=== PATIENT | male | born 1955 ===

== ENCOUNTER 2018-07-18 16:49 | Emergency (ER) | payer BC ==
--- OUTSIDE RECORDS SUMMARY | 2018-07-18 17:03 | XMS REPORT ---
:1955 External Reference #:[id number] Author Organization [facility] Address [address], [address] [place] [address] Phone [phone] Care Team Providers Name Role Phone Rhett Montgomery, Care Team Information Liquor Maker Unavailable Rhett Montgomery DO Primary Care Physician Unavailable Payers Type Date Identification Numbers Payment Provider Subscriber Commercial Policy Number: [id number] Mateo Fuentes PayID: [id number] [address] [address] [place] [address] Problems Date Description Provider Status Onset: 06/19/2018 Benign prostatic hypertrophy with Giovani Cruz M.D. Active outflow obstruction Onset: 05/22/2018 Psychogenic impotence Giovani Cruz M.D. Active Onset: 01/31/2018 Testicular hypofunction Giovani Cruz M.D. Active Onset: 01/31/2018 Microscopic hematuria Giovani Cruz M.D. Active Family History Date Family Member(s) Problem(s) Comments Father due to multiple myeloma () Mother due to Essential Hypertension () Mother due to Stroke () Mother due to Breast Cancer () Social History Type Date Description Comments Lives With Occupation works at [employer] ETOH Use Uses Alcohol Daily ETOH Use 2-3 on average day more on game days Smoking occasional cigar Recreational Drug Use Denies Drug Use Allergies, Adverse Reactions, Alerts Date Description Reaction Status Severity Comments 01/31/2018 Penicillin as child unknown active 01/31/2018 Erythromycin gastric active 01/31/2018 Ketex Urticaria active Medications Medication Date Status Form Strength Qnty SIG Indications Ordering Provider Aveed 05/22/ Active Solution 750mg/3ML administered Nancy, 2018 in krystyna Verdugo M.D. office Atorvastatin / Active Tablets 20mg Take One Unknown Calcium 0000 Tablet By Mouth Every Day Omeprazole / Active Capsules 40mg Take One Unknown 0000 DR Capsule By Mouth Every Day Valsartan / Active Tablets 160mg Take One Unknown 0000 Tablet By Mouth Every Day Clomiphene / Active Tablets 50mg Take 1 2 Unknown Citrate 0000 Tablet By Mouth Once Daily Bupropion HCL / Active Tablets ER 300mg Take One Unknown ER (XL) 0000 24HR Tablet By Mouth Every Day Escitalopram / Active Solution 5mg/5ML 1 po qd Unknown Oxalate 0000 Vitamin D3 / Active Capsules 2000Unit 1 po qd Unknown Super Strength 0000 Cipro 02/16/ Hx Tablets 500mg 10tab 1 tab by Nancy, 2017 - s mouth 1 x Giovani, 02/17/ M.DKalyan 2018 Medications Administered in Office Medication Date Status Form Strength Qnty SIG Indications Ordering Provider Injection, Administered Injection Nancy, testosterone 018 Mahmovelvet, undecanoate, 1 M.D. mg- 750 units Injection, Administered Injection Nancy, testosterone 018 Mahmoud, undecanoate, 1 M.D. mg- 750 units Theraputic Or Administered Injection Nancy, Diagnostic 018 Chinedumoud, Injection M.D. Theraputic Or Administered Injection Nancy, Diagnostic 018 Mahmoud, Injection M.D. Vital Signs Date Vital Result Comment 06/19/2018 BP Systolic 131 mmHg BP Diastolic 89 mmHg Body Temperature 98.8 F Heart Rate 73 /min Respiratory Rate 16 /min Height 68 inches 5'8" Weight 164.00 lb BMI (Body Mass Index) 24.9 kg/m2 BSA (Body Surface Area) 1.88 m2 [place] body weight in kilograms 70 O2 % BldC Oximetry 97 % Pain Level 0 05/22/2018 BP Systolic 143 mmHg BP Diastolic 80 mmHg Heart Rate 70 /min Respiratory Rate 16 /min O2 % BldC Oximetry 94 % 05/22/2018 BP Systolic 148 mmHg BP Diastolic 83 mmHg Body Temperature 99.3 F Heart Rate 74 /min Respiratory Rate 16 /min Height 67.5 inches 5'7.50" Weight 163.00 lb BMI (Body Mass Index) 25.1 kg/m2 BSA (Body Surface Area) 1.86 m2 [place] body weight in kilograms 68 O2 % BldC Oximetry 94 % Pain Level 0 02/16/2018 BP Systolic 128 mmHg BP Diastolic 80 mmHg Body Temperature 99.2 F Heart Rate 85 /min Respiratory Rate 18 /min Height 67.5 inches 5'7.50" Weight 165.00 lb BMI (Body Mass Index) 25.5 kg/m2 BSA (Body Surface Area) 1.87 m2 [place] body weight in kilograms 68 O2 % BldC Oximetry 96 % Pain Level 0 01/31/2018 BP Systolic 144 mmHg BP Diastolic 88 mmHg Body Temperature 98.4 F Heart Rate 73 /min Respiratory Rate 14 /min Height 67.5 inches 5'7.50" Weight 166.38 lb BMI (Body Mass Index) 25.7 kg/m2 BSA (Body Surface Area) 1.88 m2 [place] body weight in kilograms 68 O2 % BldC Oximetry 96 % Pain Level 0 Results Test Date Test Result H/L Range Note Laboratory test finding 02/03/2018 Creatinine 0.9 mg/dL 0.6-1.3 1 BUN 12 mg/dL 7-18 1 Ua RFX Micro & Culture II 01/31/2018 Urine Color YELLOW Yellow 1 Urine Clarity CLEAR Clear 1 Urine Glucose - Dipstick NEGATIVE mg/dL Negative 1 Urine Bilirubin - Dipstick NEGATIVE Negative 1 Urine Ketone NEGATIVE mg/dL Negative 1 Urine Specific [place] 1.015 1.010-1.030 1 Urine Blood TRACE Negative 1 Urine PH 6.0 Low 6.5-7.5 1 Urine Protein - Dipstick NEGATIVE mg/dL Negative 1 Urine Urobilinogen - Dipstick 0.2 E.U./dL 0.2-1.0 1 Urine Nitrite - Dipstick NEGATIVE Negative 1 Urine Leuk Esterase NEGATIVE Negative 1 1 R31.21 Procedures Date CPT Code Description Status 05/22/2018 14645 Theraputic Or Diagnostic Injection Completed 05/22/2018 83180 Theraputic Or Diagnostic Injection Completed 02/16/2018 19385 Cystoscopy Completed 01/31/2018 92074 Measurement Post Voiding Residual Urine By Completed Ultrasound,Non-Imaging Encounters Type Date Location Provider CPT E/M Dx Office Visit 06/19/2018 9:15a Urology Giovani Cruz M.D. 26562 E29.1 F52.21 N40.1 Office Visit 05/22/2018 2:30p Urology Giovani Cruz M.D. 04300 E29.1 F52.21 Office Visit 01/31/2018 3:45p Urology Giovani Cruz M.D. 41424 R31.21 E29.1 Plan of Care Future Appointment(s):08/28/2018 9:15 am - Giovani Cruz M.D. at [email or web address] 4:00 pm - Giovani Cruz M.D. at [id number]/19/2018 - Giovani Cruz M.D.E29.1 Testicular hypofunctionComments:Patient has improved after one shot of Aveed, today he receives loading dose#2. He will come back in10 weeks for a testosterone level and an injection.F52.21 Male erectile disorderComments: Continue Viagra. I told the patient that he could take up to 100 mg. His libido has improved.N40.1 Benign prostatic hyperplasia with lower urinary tract sympComments:Patient's symptoms are tolerable at this time and mostly with slowness of stream. He does not want any intervention.
[2018-07-18 17:32] VITALS: BP 151/92
--- NOTE | 2018-07-18 18:02 | UC ---
Skin Complaint HPI - HPI Summary HPI Summary: 63 yo male presents with tick bite to right inner thigh. He tells me that he was outdoors 48 hours ago and just noticed it this afternoon. Tried to remove it with tweezers, but was unable to. He has been bitten by many ticks in the past and is requesting prophylactic doxycycline. - History of Current Complaint Chief Complaint: UCSkin Time Seen by Provider: 07/18/18 18:02 Stated Complaint: TICK BITE Hx Obtained From: Patient Current Severity: None Pain Intensity: 0 - Allergy/Home Medications Allergies/Adverse Reactions: Allergies Allergy/AdvReac Type Severity Reaction Status Date / Time azithromycin Allergy GI Upset Verified 07/18/18 17:25 Penicillins Allergy Unknown Verified 07/18/18 17:25 Reaction Details telithromycin [From Ketek] Allergy Hives Verified 07/18/18 17:25 Home Medications: Home Medications Atorvastatin* [Lipitor 10 MG*] 1 tab DAILY 07/18/18 [History Confirmed 07/18/18] Omeprazole CAP(NF) [PriLOSEC CAP(NF)] 1 tab DAILY 07/18/18 [History Confirmed ] Valsartan TAB* [Diovan TAB*] 1 tab DAILY 07/18/18 [History Confirmed 07/18/18] buPROPion TAB* [Wellbutrin TAB*] 1 tab DAILY 07/18/18 [History Confirmed ] Review of Systems Constitutional: Negative Skin: Other - Tick bite right inner thigh Respiratory: Negative Cardiovascular: Negative Neurovascular: Negative Neurological: Negative Psychological: Negative All Other Systems Reviewed And Are Negative: Yes PMH/Surg Hx/FS Hx/Imm Hx Endocrine History: Dyslipidemia Cardiovascular History: Hypertension GI/ History: Gastroesophageal Reflux - Surgical History Surgical History: None - Family History Known Family History: Positive: None - Social History Occupation: Employed Full-time Lives: With Family Alcohol Use: Daily Alcohol Amount: 2 drinks/night Substance Use Type: None Smoking Status (MU): Never Smoked Tobacco - Immunization History Most Recent Tetanus Shot: Unsure Physical Exam - Summary Physical Exam Summary: GENERAL: NAD. WDWN. No pain distress. SKIN: RIGHT MEDIAL THIGH: 6mm area of moderate erythema with central tick attached. Tick mildly engorged, but not alive. NECK: Supple. Nontender. No lymphadenopathy. CHEST: No accessory muscle use. Breathing comfortably and in no distress. CV: Pulses intact. Cap refill <2seconds NEURO: Alert. PSYCH: Age appropriate behavior. Triage Information Reviewed: Yes Vital Signs: Initial Vital Signs Temp 99 F 07/18/18 17:27 Pulse 73 07/18/18 17:27 Resp 16 07/18/18 17:27 BP 151/92 07/18/18 17:27 Pulse Ox 97 07/18/18 17:27 Vital Signs Reviewed: Yes Course/Dx - Course Course Of Treatment: Tick easily removed with tick tweezers. Rx for 200mg doxycycline. - Diagnoses Provider Diagnoses: Tick bite right medial thigh Discharge - Sign-Out/Discharge Documenting (check all that apply): Patient Departure All imaging exams completed and their final reports reviewed: No Studies - Discharge Plan Condition: Stable Disposition: HOME Prescriptions: DOXYcycline CAP(*) [DOXYcycline 100MG CAP(*)] 200 mg PO ONCE #2 cap Patient Education Materials: Lyme Disease (ED), Tick Bite (ED) Referrals: Rhett Montgomery DO [Primary Care Provider] - Additional Instructions: If you develop a fever, shortness of breath, chest pain, new or worsening symptoms - please call your PCP or go to the ED. Your blood pressure was high at todays visit. Please see your primary provider within 4 weeks for recheck and re-evaluation. TICK BITE: You have been bitten by a tick. Once the tick is removed, these "bites" usually cause no problems. Tick fever, tick paralysis, [place] Spotted fever, and Lyme disease are uncommon -- but you should mention this tick bite to your doctor if you develop unusual symptoms in the next several weeks. If you develop any of the following, please see your physician promptly: (1) Fever, chills, or generalized malaise associated with a headache. (2) A red round area at the site of the bite (or elsewhere) (3) Joint pain, joint swelling or generalized weakness. (4) Redness, swelling, or drainage at the site of the bite. - Billing Disposition and Condition Condition: STABLE Disposition: Home - Attestation Statements Provider Attestation: I was available for consult. This patient was seen by the MANE. The patient was not presented to, seen by, or examined by me. -Lolis
== END 2018-07-18 18:13 | disposition home or self-care (01) ==
LOC: UCCORT 16:49
DX: S70.361A Insect bite (nonvenomous), right thigh, initial encounter (principal); E78.5 Hyperlipidemia, unspecified; I10 Essential (primary) hypertension; K21.9 Gastro-esophageal reflux disease without esophagitis; W57.XXXA Bitten or stung by nonvenomous insect and other nonvenomous arthropods, initial encounter; Y92.9 Unspecified place or not applicable; Z88.0 Allergy status to penicillin; Z88.1 Allergy status to other antibiotic agents
CPT/HCPCS: 99212; G0463